=== PATIENT | male | born 1940 | race Caucasian/White ===

== ENCOUNTER 2022-06-01 18:10 | Inpatient (IN) | payer MEDICARE, SELFPAY ==
--- NOTE | 2022-06-01 18:11 | ED_ITS ---
HPI - Weakness General: Chief complaint: Fall Stated complaint: WEAKNESS Time Seen by Provider: 06/01/22 18:11 Limitations: altered mental status History of Present Illness: Mr. Kwan is a 81-year-old gentleman with significant past medical history of dementia, diabetes, heart disease who presents to the emergency department due to multiple falls. He has had 2 unwitnessed falls at home today. In general he has some degree of difficulty getting around primarily with right leg weakness however over the past week is seem to be more weak. Specifically after having unwitnessed fall where he was found got wedged between 2 mattress components earlier today he subsequently had worse left lower extremity pain and was complaining of weakness and back pain. He subsequently had another unwitnessed fall after trying to get up. Currently denies complaints though history is significantly limited by baseline dementia and patient being hard of hearing, history is provided by patient's at bedside. Onset (ago): day(s) Review of Systems General: Reports: ROS unobtainable due to mental status PFS ED PFSH: Medical History CAD (coronary artery disease) Dementia History of diabetes mellitus History of hyperlipidemia Surgical History History of appendectomy History of coronary angioplasty with insertion of stent Hx of CABG Social History Smoking and tobacco status: never smoked Physical Exam Const: COMMON NORMALS: alert GENERAL APPEARANCE: cooperative and well developed HENMT: COMMON NORMALS: normocephalic and atraumatic HEAD & SCALP: normocephalic and atraumatic OTHER: Left temporal skin abnormality reported chronic from history of skin cancer. No west signs or raccoon eyes. No otorrhea or rhinorrhea. Jaw alignment normal. Dentition baseline. No obvious bony step-offs. No septal hematoma. No evidence of ocular entrapment. Eye: COMMON NORMALS: conjunctivae normal CONJUNCTIVA: Yes conjunctivae normal SCLERA: sclerae normal Neck/C-Spine: COMMON NORMALS: supple GENERAL: Yes trachea midline Chest: OTHER: Midline sternotomy incision?remote Resp: COMMON NORMALS: clear to auscultation bilaterally EFFORT & INSPECTION: Yes able to speak in complete sentences AUSCULTATION: clear to auscultation bilaterally Cardio: COMMON NORMALS: regular rate and regular rhythm RATE: regular rate RHYTHM: regular rhythm GI: COMMON NORMALS: Soft to palpation PALPATION: Yes Soft to palpation and No Tenderness to palpation present (GI) Extremity: GENERAL: Yes normal exam except as noted and No edema Neuro: COMMON NORMALS: moves all extremities SENSORIUM/ORIENTATION: Yes alert and Yes Orientation impaired Psych: MEMORY/COGNITION: Yes memory grossly impaired Course ED course: - Patient was seen and evaluated by me at bedside - Patient placed on cardiac monitors, IV access obtained - Initial evaluation notable for exam as above. Neurologic exam appears nonfocal. - Labs personally interpreted by me. EKG with atrial fibrillation with controlled ventricular response, no STEMI. - Labs notable for no leukocytosis, normal hemoglobin. Metabolic panel without acute electrolyte derangement to explain symptoms. Delta troponin negative at 2 hours. Hematuria without evidence of UTI. - Imaging notable for no acute traumatic internal or bony injury. Patient does have kidney stones though appears in renal pelvis, patient does not have symptoms consistent with ureterolithiasis. - Upon serial reexamination after treatment the patient was similar. Repeat EKG similar. - Based on patient history, evaluation, and testing as interpreted the most likely cause of the patient's condition is uncertain, generalized weakness and falls, possibly related to new onset atrial fibrillation - The results of ED evaluation were discussed with the patient and his including possible disposition options, given increased weakness they do wish to pursue further evaluation of patient's potentially new onset atrial fibrillation. I discussed plan for admission due to requirement for level of care not available if discharged to prevent significant worsening/deterioration. - Admitting service was contacted and Dr Corey with the hospitalist service agreed to admit the patient - Patient was admitted without further deterioration or significant events. Note: Click bubbles or prepopulated barker in note writing are used for assistance with data collection and billing and are inherently more limited than narrative and other text portions of this note. Please use narrative for additional clinical history and defer to narrative/free test for any case of contradictory information. If information appears in only free text or click bubble it should be considered present or absent as reported. Please contact note teletypewriter operator for clarifications of clinical information or contradictory information. MDM is a brief summary, contradictory or erroneous seeming information should be clarified and full note should be reviewed. Vital Signs: Vital signs: Vital Signs Temperature 98.1 F 06/05/22 15:11 Pulse Rate 85 06/05/22 15:11 Respiratory Rate 18 06/05/22 15:11 Blood Pressure 159/72 06/05/22 15:11 Pulse Oximetry 95 06/05/22 15:11 Oxygen Delivery Me thod 06/05/22 11:05 MDM - Weakness Medical Decision Making 81-year-old gentleman presenting with increased weakness and multiple falls. History somewhat limited by underlying dementia and very hard of hearing. No acute traumatic injury identified on CT imaging. Labs without clear explanation of symptoms. Patient found to have A. fib which he has no previous knowledge of . Admitted for further management of new onset A. fib which may be contributing to increased falls and weakness. Medical Records I reviewed the patient's medical records. Lab Data I reviewed the patient's lab results. : 06/02/22 05:12 06/05/22 05:28 Radiology Impressions Cervical Spine CT 06/01/22 18:25 IMPRESSION: No acute findings. Chest/Abdomen/Pelvis CT 06/01/22 18:25 IMPRESSION: 1. Negative for traumatic injury to the chest. 2. Cardiomegaly. 3. Coronary artery atherosclerotic calcifications. 4. Bilateral dependent atelectasis. IMPRESSION: 1. Negative for traumatic injury to the abdomen or pelvis. 2. 8.9 mm calculus in the right renal pelvis with some prominence of the renal pelvis. 3. Bilateral nonobstructing renal calyceal stones. 4. Prostate gland enlarged. 5. Severe bilateral osteoarthritis of the hips. 6. Diverticulosis without diverticulitis. 7. Left kidney 8.5 mm hyperdense likely hemorrhagic cyst, likely chronic. Head CT 06/01/22 18:25 IMPRESSION: No acute intracranial abnormality. Laboratory Results WBC 7.8 10^3/uL (4.0-10.0) 06/01/22 19:02 RBC 5.04 10^6/uL (4.1-5.3) 06/01/22 19:02 Hgb 15.5 g/dL (11.7-16.6) 06/01/22 19:02 Hct 47.0 % (42.0-52.0) 06/01/22 19:02 MCV 93.3 fl (80-94) 06/01/22 19:02 MCH 30.8 pg (28.0-34.0) 06/01/22 19: MCHC 33.0 g/dL (30.0-36.0) 06/01/22 19:02 RDW 14.9 % (12.1-15.1) 06/01/22 19:02 Plt Count 187 10^3/cmm (130-400) 06/01/22 19: MPV 10.5 fL (7.4-10.4) H 06/01/22 19:02 Neut % (Auto) 78.3 % 06/01/22 19: Lymph % (Auto) 13.3 % 06/01/22 19: [place] % (Auto) 7.3 % 06/01/22 19: Eos % (Auto) 0.4 % 06/01/22: Baso % (Auto) 0.4 % 06/01/22: Neut # (Auto) 6.13 10^3/uL (1.8-7.7) 06/01/22 19: Lymph # (Auto) 1.0 10^3/uL (0.8-4.8) 06/01/22 19:02 [place] # (Auto) 0.6 10^3/uL (0.2-0.9) 06/01/22 19: Eos # (Auto) 0.0 10^3/uL (0.0-0.8) 06/01/22 19: Baso # (Auto) 0.0 10^3/uL (0.0-0.1) 06/01/22 19: Nucleated RBC % (auto) 0 % 06/01/22 19: Nucleated RBCs # 0.0 /100WBC 06/01/22 19:02 Sodium 139 mmol/L (136-145) 06/01/22 19:02 Potassium 3.8 mmol/L (3.5-5.1) 06/01/22 19:02 Chloride 105 mmol/L (98-107) 06/01/22 19:02 Carbon Dioxide 25 mmol/L (22-29) 06/01/22 19: Anion Gap 12.8 (5-19) 06/01/22 19:02 BUN 30 mg/dL (8-23) H 06/01/22 19:02 Creatinine 1.1 mg/dL (0.7-1.2) 06/01/22 19:02 GFR Calculation Not Reportable 06/01/22 19:02 Glucose 93 mg/dL (65-115) 06/01/22 19:02 Calculated Osmolality 294 mOsm/kg (285-295) 06/01/22 19:02 Calcium 9.7 mg/dL (8.5-10.5) 06/01/22 19:02 Magnesium 1.9 mg/dL (1.7-2.3) 06/01/22 19:05 Total Bilirubin 1.0 mg/dL (0.15-1.2) 06/01/22 19:02 AST 17 U/L (0-40) 06/01/22 19:02 ALT 15 U/L (0-41) 06/01/22 19:02 Alkaline Phosphatase 87 U/L (40-130) 06/01/22 19:02 Creatine Kinase 107 U/L (39-308) 06/01/22 19:02 Troponin T Baseline 39 ng/L (0-15) H 06/01/22 19:02 Troponin T 120 Minute 40.77 ng/L (0-15) H 06/01/22 20:40 Delta Troponin T 1.77 ABS# (0-10) 06/01/22 20:40 Total Protein 6.3 g/dL (6.6-8.7) L 06/01/22 19:02 Albumin 3.4 g/dL (3.5-5.2) L 06/01/22 19:02 Globulin 2.9 g/dL (1.3-4.6) 06/01/22 19:02 TSH 1.73 uIU/mL (0.27-4.20) 06/01/22 19:02 Urine Color Yellow (Yellow) 06/01/22:54 Urine Appearance Clear (CLEAR) 06/01/22 19:54 Urine pH 6 (5-7) 06/01/22 19:54 Ur Specific [place] 1.020 (1.005-1.030) 06/01/22 19:54 Urine Protein 1+ (Negative) H 06/01/22 19:54 Urine Glucose (UA) Norm (Normal) 06/01/22 19:54 Urine Ketones 1+ (Negative) H 06/01/22 19:54 Urine Blood 3+ (Negative) H 06/01/22 19:54 Urine Nitrate Negative (Negative) 06/01/22 19:54 Urine Bilirubin Neg (Negative) 06/01/22 19:54 Urine Urobilinogen 1 mg/dL (Negative) H 06/01/22 19:54 Ur Leukocyte Esterase Negative (Negative) 06/01/22 19:54 Urine RBC 10-15 /hpf (0-2) H 06/01/22 19:54 Urine WBC 0-4 /hpf (0-5) H 06/01/22 19:54 Ur Squamous Epith Cells 0-4 /hpf (0-5) H 06/01/22 19:54 Amorphous Sediment Not Reportable 06/01/22 19:54 Urine Bacteria None /hpf (NONE) 06/01/22 19:54 Hyaline Casts 0-4 /lpf H 06/01/22 19:54 Discharge Plan Discharge Patient Disposition: Placed in Observation Admit Provider: Willie Corey Clinical Impression: Atrial fibrillation, new onset, Falls, Generalized weakness, Nephrolithiasis, Hematuria Coding Level of Care Code ED Channel Marketing Specialist for Chg Fwd Exam Comprehensive
[2022-06-01 18:12] VITALS: BP 150/90; RESP 16; TEMP 37; O2SAT 95; BMI 23.7
--- NOTE | 2022-06-01 18:25 | CTR_ITS ---
PROCEDURE INFORMATION: Exam: CT Cervical Spine Without Contrast Exam date and time: 06/01/2022 6:43 PM Age: 81 years old Clinical indication: Injury or trauma; Blunt trauma; Injury details: Multiple falls over the last 2 weeks. Fell twice today. AMS, weakness. PT C/O head, neck, and back pain; Prior surgery; Additional info: Fall, AMS TECHNIQUE: Imaging protocol: Computed tomography of the cervical spine without contrast. Radiation optimization: All CT scans at this facility use at least one of these dose optimization techniques: automated exposure control; mA and/or kV adjustment per patient size (includes targeted exams where dose is matched to clinical indication); or iterative reconstruction. COMPARISON: CT cervical spin wo con* [id number] 08/30/2017 4:49 AM RADIATION DOSE METRICS: Total DLP (mGy-cm): 206.7 FINDINGS: Bones/joints: No acute fracture. Normal alignment. C2-C3: No significant disc protrusion. No severe spinal canal stenosis. No significant neural foraminal narrowing. C3-C4: No significant disc protrusion. No severe spinal canal stenosis. No significant neural foraminal narrowing. C4-C5: No significant disc protrusion. No severe spinal canal stenosis. No significant neural foraminal narrowing. C5-C6: No significant disc protrusion. No severe spinal canal stenosis. No significant neural foraminal narrowing. C6-C7: No significant disc protrusion. No severe spinal canal stenosis. No significant neural foraminal narrowing. C7-T1: No significant disc protrusion. No severe spinal canal stenosis. No significant neural foraminal narrowing. Lungs: Lung apices are normal. Soft tissues: Unremarkable. CT/CT cervical spin wo con* [id number] IMPRESSION: No acute findings.
--- NOTE | 2022-06-01 18:25 | CTR_ITS ---
PROCEDURE INFORMATION: Exam: CT Head Without Contrast Exam date and time: 06/01/2022 6:43 PM Age: 81 years old Clinical indication: Injury or trauma; Fall; Blunt trauma (contusions or hematomas); Additional info: Fall, AMS, increased le weakness TECHNIQUE: Imaging protocol: Computed tomography of the head without contrast. Radiation optimization: All CT scans at this facility use at least one of these dose optimization techniques: automated exposure control; mA and/or kV adjustment per patient size (includes targeted exams where dose is matched to clinical indication); or iterative reconstruction. COMPARISON: CT head wo con* [id number] 08/30/2017 4:45 AM RADIATION DOSE METRICS: Total DLP (mGy-cm): 1010.29 FINDINGS: Brain: No hemorrhage. No edema. Advanced diffuse cerebral atrophy. 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 Old punctate lacunar infarcts noted in the left basal ganglia. No mass effect. Cerebral ventricles: No ventriculomegaly. Paranasal sinuses: Visualized sinuses are unremarkable. No fluid levels. Mastoid air cells: Visualized mastoid air cells are well aerated. Bones/joints: Unremarkable. No acute fracture. Soft tissues: Unremarkable. CT/CT head wo con* [id number] IMPRESSION: No acute intracranial abnormality.
--- NOTE | 2022-06-01 18:25 | CTR_ITS ---
PROCEDURE INFORMATION: Exam: CT Chest Without Contrast; Diagnostic Exam date and time: 06/01/2022 6:43 PM Age: 81 years old Clinical indication: Injury or trauma; Generalized; Blunt trauma (contusions or hematomas); Injury details: Multiple falls over the last 2 weeks. Fell twice today. AMS, weakness. PT C/O head, neck, and back pain; Additional info: Fall, back pain, AMS TECHNIQUE: Imaging protocol: Diagnostic computed tomography of the chest without contrast. Radiation optimization: All CT scans at this facility use at least one of these dose optimization techniques: automated exposure control; mA and/or kV adjustment per patient size (includes targeted exams where dose is matched to clinical indication); or iterative reconstruction. COMPARISON: CT angio chest PE protcl [id number] 08/30/2017 12:35 PM RADIATION DOSE METRICS: Total DLP (mGy-cm): 877 FINDINGS: Lungs: Bilateral dependent atelectasis. Pleural spaces: Unremarkable. No pneumothorax. No pleural effusion. Heart: Cardiomegaly. Coronary artery atherosclerotic calcifications. Lymph nodes: Unremarkable. No enlarged lymph nodes. Vasculature: Unremarkable. No aortic aneurysm. Bones/joints: Sternotomy wires. Soft tissues: Unremarkable. PROCEDURE INFORMATION: Exam: CT Abdomen And Pelvis Without Contrast Exam date and time: 06/01/2022 6:43 PM Age: 81 years old Clinical indication: Injury or trauma; Generalized; Blunt trauma (contusions or hematomas); Injury details: Multiple falls over the last 2 weeks. Fell twice today. AMS, weakness. PT C/O head, neck, and back pain; Additional info: Fall, back pain, AMS TECHNIQUE: Imaging protocol: Computed tomography of the abdomen and pelvis without contrast. Radiation optimization: All CT scans at this facility use at least one of these dose optimization techniques: automated exposure control; mA and/or kV adjustment per patient size (includes targeted exams where dose is matched to clinical indication); or iterative reconstruction. COMPARISON: CT angio chest PE protcl [id number] 08/30/2017 12:35 PM RADIATION DOSE METRICS: Total DLP (mGy-cm): 877 FINDINGS: Liver: Normal. No mass. Gallbladder and bile ducts: Normal. No calcified stones. No ductal dilation. Pancreas: Normal. No ductal dilation. Spleen: Normal. No splenomegaly. Adrenal glands: Normal. No mass. Kidneys and ureters: 8.9 mm calculus in the right renal pelvis with some prominence of the renal pelvis. Bilateral nonobstructing renal calyceal stones. Stomach and bowel: Diverticulosis without diverticulitis. Left kidney 8.5 mm hyperdense likely hemorrhagic cyst, likely chronic. Appendix: No evidence of appendicitis. Intraperitoneal space: Unremarkable. No free air. No significant fluid collection. Vasculature: Unremarkable. No abdominal aortic aneurysm. Lymph nodes: Unremarkable. No enlarged lymph nodes. Urinary bladder: Unremarkable as visualized. Reproductive: Prostate gland enlarged. Bones/joints: Severe bilateral osteoarthritis of the hips. Soft tissues: Unremarkable. CT/[place] [id number] IMPRESSION: 1. Negative for traumatic injury to the chest. 2. Cardiomegaly. 3. Coronary artery atherosclerotic calcifications. 4. Bilateral dependent atelectasis. IMPRESSION: 1. Negative for traumatic injury to the abdomen or pelvis. 2. 8.9 mm calculus in the right renal pelvis with some prominence of the renal pelvis. 3. Bilateral nonobstructing renal calyceal stones. 4. Prostate gland enlarged. 5. Severe bilateral osteoarthritis of the hips. 6. Diverticulosis without diverticulitis. 7. Left kidney 8.5 mm hyperdense likely hemorrhagic cyst, likely chronic.
[2022-06-01 18:31] VITALS: BP 145/93; PULSE 81; RESP 20; O2SAT 94
--- NOTE | 2022-06-01 19:00 | ECG_ITS ---
[facility] Test Date: 2022-06-01 Pat Name: Natividad Kwan Department: Room: Gender: Male Quality Facilitator: : 1940 Requested By: Sonido Ledbetter Order Number: [id number] Dhaval MD: Kasey Feldman M.D. Measurements Intervals [place] Rate: 78 P: CT: QRS: -43 QRSD: 109 T: 160 QT: 371 QTc: 423 Interpretive Statements ATRIAL FIBRILLATION LEFT AXIS DEVIATION [QRS AXIS < -30] MINIMAL VOLTAGE CRITERIA FOR LVH, CONSIDER NORMAL VARIANT [MEETS CRITERIA IN ONE OF: R(aVL), S(V1), R(V5), R(V5/V6)+S(V1)] ST DEVIATION AND MODERATE T-WAVE ABNORMALITY, CONSIDER LATERAL ISCHEMIA [-0.1+ mV T-WAVE IN I/aVL/V5/V6] Compared to ECG 08/31/2017 05:04:15 Left-axis deviation now present Sinus rhythm no longer present T-wave abnormality still present Possible ischemia still present Electronically Signed On 06-02-2022 8:34:15 CDT by Kasey Feldman M.D. [id number]
[2022-06-01 19:08] LABS: Basophils % 0.4 %; Eosinophils % 0.4 %; Hemoglobin 15.5 g/dL (11.7-16.6); Lymphocytes % 13.3 %; Mean Corpuscular Hemoglobin 30.8 pg (28.0-34.0); Mean Corpuscular Volume 93.3 fl (80-94); Mean Platelet Volume 10.5 fL (7.4-10.4); Monocytes # 0.6 10^3/uL (0.2-0.9); Monocytes % 7.3 %; Neutrophils # 6.13 10^3/uL (1.8-7.7); Neutrophils % 78.3 %; Nucleated Red Blood Cells % 0 %; Platelet Count 187 10^3/cmm (130-400); Red Blood Count 5.04 10^6/uL (4.1-5.3); Red Cell Distribution Width 14.9 % (12.1-15.1); White Blood Count 7.8 10^3/uL (4.0-10.0)
[2022-06-01 19:57] LABS: Alanine Aminotransferase 15 U/L (0-41); Albumin Level 3.4 g/dL (3.5-5.2); Alkaline Phosphatase 87 U/L (40-130); Anion Gap 12.8 (5-19); Aspartate Amino Transferase 17 U/L (0-40); Blood Urea Nitrogen 30 mg/dL (8-23); Calcium 9.7 mg/dL (8.5-10.5); Carbon Dioxide 25 mmol/L (22-29); Chloride 105 mmol/L (98-107); Creatine Phosphokinase 107 U/L (39-308); Globulin 2.9 g/dL (1.3-4.6); Glucose 93 mg/dL (65-115); Osmolality Calculated 294 mOsm/kg (285-295); Potassium 3.8 mmol/L (3.5-5.1); Sodium 139 mmol/L (136-145); Thyroid Stimulating Hormone 1.73 uIU/mL (0.27-4.20); Total Protein 6.3 g/dL (6.6-8.7)
[2022-06-01 20:01] LABS: Troponin(5th) Baseline 39 ng/L (0-15)
[2022-06-01 20:17] LABS: Add Urine Microscopic? YES; Bilirubin Urine Neg (Negative); Blood Urine 3+ (Negative); Glucose Urine UA Norm (Normal); Hyaline Casts Urine 0-4 /lpf; Ketones Urine 1+ (Negative); Leukocyte Esterase Urine Negative (Negative); Nitrate Urine Negative (Negative); Protein Urine 1+ (Negative); Squamous Epithelial Cell Urine 0-4 /hpf (0-5); Urine Appearance Clear (CLEAR); Urine Color Yellow (Yellow); Urobilinogen Urine 1 mg/dL (Negative); WBC Urine 0-4 /hpf (0-5); pH Urine 6 (5-7)
[2022-06-01 20:18] LABS: Add Urine Culture? No
--- NOTE | 2022-06-01 20:37 | ECG_ITS ---
[facility] Test Date: 2022-06-01 Pat Name: Natividad Kwan Department: Room: Gender: Male Service Car Operator: : 1940 Requested By: Sonido Ledbetter Order Number: [id number] Dhaval MD: Kasey Feldman M.D. Measurements Intervals [place] Rate: 73 P: TN: QRS: -33 QRSD: 109 T: 149 QT: 399 QTc: 441 Interpretive Statements ATRIAL FIBRILLATION LEFT AXIS DEVIATION [QRS AXIS < -30] VOLTAGE CRITERIA FOR LVH [MEETS CRITERIA IN ONE OF: R(aVL), S(V1), R(V5), R(V5/V6)+S(V1)] ST DEVIATION AND MODERATE T-WAVE ABNORMALITY, CONSIDER LATERAL ISCHEMIA [-0.1+ mV T-WAVE IN I/aVL/V5/V6] Compared to ECG 06/01/2022 19:00:40 No significant changes Electronically Signed On 06-02-2022 8:37:51 CDT by Kasey Feldman M.D. [id number]
[2022-06-01 21:02] LABS: Magnesium 1.9 mg/dL (1.7-2.3)
[2022-06-01 21:15] LABS: Troponin 5 2HR 40.77 ng/L (0-15)
[2022-06-01 21:18] LABS: Troponin 5 2HR Delta 1.77 ABS# (0-10)
[2022-06-01 22:46] VITALS: BP 139/76; PULSE 80; RESP 16; TEMP 37; O2SAT 95
--- NOTE | 2022-06-01 22:52 | PM.HP ---
Providers/Chief Complaint Admitting Physician: Willie Corey MD Primary Care Provider: Teja Duggan Chief Complaint: WEAKNESS History of Present Illness Natividad Kwan is a 81 year old male with a past medical history of CAD, history of CABG, history of hypertension, history of Alzheimer's dementia, who presents to [facility] due to falls. Patient's currently alert to person, not to place, not to time, most of the history was provided by at bedside. Patient's tells me that he is fairly forgetful, his dementia has advanced, he does not really carry out conversations, and recently he has been forgetting, numerous such as his son. She tells he that his mobility has drastically declined, he is now more wheeled walker bound, he is ambulatory status is dramatically declined, she tells me that now he has had significant falls. He has had a fall every single day for the last 3 weeks. She was told by her son, as she goes to work that every day that she is going to work he is had a significant fall. The etiology of the falls are uncertain, they think that is a mechanical fall. But today when she went to work, she was told by her son that he had fallen, she came up and checked up on him, she tells her that when she was at home she fell asleep, when she woke up, she found him on the floor she is not sure how long he was on the floor for. She tells me that these falls are not typical for him and they will start in the last 3 weeks. She wonders if he had a stroke, as he tends to lean more to the right, this is very unusual for him, he is very unsteady on his feet. No history of UTIs, no history of cough, no history of COVID infection. No chest pain complaints, no shortness of breath complaints. No lower extreme edema. Patient's tells me that he has had significant weakness in bilateral lower extremities recently in the last few days, worsening today as he is barely able to stand up and walk Review of Systems General: Reports: ROS unobtainable due to mental status Const: Denies: fever(s) Medications/Allergies Home Medications Medication Instructions Recorded Confirmed Last Taken Type Bystolic 5 mg 06/01/22 06/01/22 History allopurinol 300 mg tablet mg 06/01/22 06/01/22 04:45 History aspirin 300 tab 06/01/22 06/01/22 History citalopram 10 mg tablet mg 06/01/22 06/01/22 History finasteride 5 mg tablet mg 06/01/22 06/01/22 04:45 History hydrochlorothiazide 25 mg tablet mg 06/01/22 06/01/22 History lisinopril 10 mg tablet mg 06/01/22 06/01/22 History meloxicam 15 mg tablet mg 06/01/22 06/01/22 History memantine ER 28 mg-donepezil 10 mg PO 06/01/22 06/01/22 History capsule sprinkle,ext.release 24 hr (Namzaric) mirabegron 50 mg tablet,extended mg PO 06/01/22 06/01/22 History release 24 hr (Myrbetriq) rosuvastatin 10 mg tablet mg 06/01/22 06/01/22 History tamsulosin 0.4 mg capsule mg PO 06/01/22 06/01/22 History Allergies Allergy/AdvReac Type Severity Reaction Status Date / Time No Known Allergies Allergy Verified 06/01/22 18:17 PFSH Acute PFSH: Medical History CAD (coronary artery disease) Dementia History of diabetes mellitus History of hyperlipidemia Surgical History History of appendectomy History of coronary angioplasty with insertion of stent Hx of CABG Social History Smoking and tobacco status: never smoked Vitals/I&O/Wt Last Vital Signs Temp 98.6 F 06/01/22 22:46 Pulse 80 06/01/22 22:46 Resp 16 06/01/22 22:46 BP 139/76 06/01/22 22:46 Pulse Ox 95 06/01/22 22:46 O2 Del Method 06/01/22 22:46 Weight last 48 hrs Weight 77.111 kg Physical Exam Const: COMMON NORMALS: no acute distress EXAM LIMITATIONS: altered mental status HENMT: COMMON NORMALS: normocephalic HEAD & SCALP: normocephalic Eye: COMMON NORMALS: Equal, round and reactive pupils present and EOMs intact bilaterally Resp: COMMON NORMALS: normal respiratory effort, No retractions, No use of accessory muscles and clear to auscultation bilaterally AUSCULTATION: clear to auscultation bilaterally Cardio: COMMON NORMALS: no JVD, regular rate, regular rhythm, S1 normal heart sound present and S2 normal heart sound present RATE: regular rate RHYTHM: regular rhythm HEART SOUNDS: S1 normal heart sound present and S2 normal heart sound present GI: COMMON NORMALS: Normal to inspection, nondistended, normoactive bowel sounds present, Soft to palpation, non-tender, No hepatosplenomegaly present, no masses and no bruits PALPATION: Yes Soft to palpation and Yes No hepatosplenomegaly present Extremity: COMMON NORMALS: no pedal edema Neuro: OTHER: Alert to person, not to place, not to time, neurologic testing is quite difficult given his advanced dementia, he does spontaneously move his bilateral lower extremities, bilateral upper extremities, no facial droop, able to smile for me, strength difficult to assess as he does not follow commands Data : 06/01/22 19:02 06/01/22 19:02 A&P Assessment and plan (1) Atrial fibrillation, new onset: Status: Acute (2) Falls: Status: Acute (3) Generalized weakness: Status: Acute (4) CAD (coronary artery disease): Status: Acute (5) Dementia: Status: Acute (6) CVA (cerebral vascular accident): Status: Acute Plan New onset atrial fibrillation -Patient's denies a prior history of atrial fibrillation, is not on any blood thinners -For now I will put him on Coreg 3.125 twice daily -We will need to monitor hemodynamics closely, if his blood pressures drop, or he has significant bradycardia will need to stop as he already has had increased risk of falls -I discussed anticoagulation in detail with at bedside, risks and benefits discussed, benefits include decreasing the risk of stroke, his Nikolas Vascor is greater than 2, however he has had a fall every single day for the last 3 weeks, he is a high risk of fall, high risk of morbidity and mortality associated with falls on blood thinners, and adverse side effects associate with blood thinners -After discussing the risks and benefits of anticoagulation, she voiced understanding, all questions answered, declined anticoagulation for now -He is on aspirin 325 mg once daily, given his significant falls, I will decrease his dose to 81 mg once daily -Cardiac echo Acute CVA -Brain: No hemorrhage. No edema. Advanced diffuse cerebral atrophy. 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 Old punctate lacunar infarcts noted in the left basal ganglia. No mass effect. Cerebral ventricles: No ventriculomegaly. Paranasal sinuses: Visualized sinuses are unremarkable. No fluid levels. Mastoid air cells: Visualized mastoid air cells are well aerated. -An NIH stroke scale is difficult to assess -However with his new onset recurrent falls, his preference to lean to the right, and with his new onset atrial fibrillation on anticoagulation highly suspicious for acute CVA, likely posterior circulation, likely cerebellar -Thus I will treat him like an acute CVA -Aspirin, statin -Neurochecks, aspiration precautions, speech therapy eval, PT OT -We will likely require correction placement Hypertension, Coreg History of type 2 diabetes mellitus, A1c, low-dose sliding scale Alzheimer's dementia, worsening Falls, deconditioning, PT OT, nursing placement DNR/DNI Lovenox for DVT prophylaxis, SCDs Attestations Medical Necessity Statement*: Patient requires hospitalization, inpatient, greater than 2 midnights, for CVA, new onset atrial fibrillation, recurrent falls Coding Level of Care Code Acute Certified Hyperbaric Technologist for Scott Levy Diagnoses Atrial fibrillation, new onset I48.91 Falls W19.XXXA Generalized weakness R53.1 CAD (coronary artery disease) I25.10 Dementia F03.90 CVA (cerebral vascular accident) I63.9
[2022-06-01 23:13] VITALS: BP 139/76; PULSE 80; RESP 16; TEMP 37; O2SAT 95
[2022-06-01 23:18] VITALS: PULSE 69
--- NOTE | 2022-06-01 23:18 | USCV_ITS ---
Natividad Kwan Age: 81 Gender: M : 1940 Exam Date: 06/01/2022 23:34 Ordering Phys: Willie Corey MD Technologist: Sherrell Chambers Exam Location: [facility] – [place] Indication: New onset of AFIB BP: 138 / 76 HR: 65 Rhythm: Atrial fibrillation Technical Quality: Poor MEASUREMENTS (Male / Female) Normal Values 2D ECHO LV Diastolic Diameter PLAX 3.6 cm 4.2 - 5.9 / 3.9 - 5.3 cm LV Systolic Diameter PLAX 3.0 cm LV Chamber Size 4.1 cm IVS Diastolic Thickness 1.4 cm 0.6 - 1.0 / 0.6 - 0.9 cm IVS Systolic Thickness 2.0 cm LVPW Diastolic Thickness 1.5 cm 0.6 - 1.0 / 0.6 - 0.9 cm LVPW Systolic Thickness 1.6 cm RV Chamber Size 2.9 cm LVOT Diameter 2.1 cm LV Ejection Fraction 2D Teich 37.5 % LV Ejection Fraction MOD 2C 14.8 % LV Ejection Fraction 2C AL 15.6 % LA Diameter 5.6 cm LA Width 4.2 cm LA Height 5.2 cm RA Width 4.3 cm RA Height 4.8 cm Aorta at Sinotubular Diameter 2.9 cm M-MODE Aortic Annulus Diameter 3.5 cm LA Ao Ratio MM 1.7 MV E Point Septal Separation 0.5 cm DOPPLER AV Peak Velocity 266.3 cm/s LVOT Peak Velocity 66.7 cm/s AV Area Cont Eq vti 0.9 cm squared AV Area Cont Eq pk 0.9 cm squared MV Area PHT 4.4 cm squared MV E' Velocity 44.0 cm/s Mitral E to MV E' Ratio 12.6 Mitral E to LV E' Lateral Ratio 13.2 Mitral E to LV E' Septal Ratio 12.3 TR Peak Velocity 189.6 cm/s TR Peak Gradient 14.4 mmHg TR Mean Velocity 145.3 cm/s TR Mean Gradient 9.3 mmHg TR Velocity Time Integral 54.5 cm TV Peak E Velocity 64.0 cm/s Right Atrial Pressure 3.0 mmHg Pulmonary Artery Systolic Pressu 17.4 mmHg RV Acceleration Time 0.1 s RV Ejection Time 0.3 s RV AcT/ET 0.2 FINDINGS Left Ventricle Limited views available. Only the parasternal views are available. 1 cannot determine the overall ejection fraction or wall motion abnormalities. Generally, the function of the left ventricle appears to be diminished somewhat. Diastolic function cannot be determined. Right Ventricle Normal right ventricular size and systolic function. Right Atrium The right atrium is normal in size. Left Atrium Mildly increased left atrial size. Mitral Valve Mitral valve not well visualized. Aortic Valve The valve is not well seen. There is fairly heavy calcification of the aortic valve. Visually the valve appears to be moderately stenosed. There is no obvious aortic insufficiency. The gradient across the valve is about 14.5 mmHg. This would suggest mild aortic stenosis. Tricuspid Valve Tricuspid valve not well visualized. Pulmonic Valve Pulmonic valve not well visualized. Mild pulmonary valve regurgitation. Pericardium Normal pericardium without effusion. Aorta Aorta not well visualized. IVC Inferior vena cava not visualized. CONCLUSIONS Limited views available. Only the parasternal views are available. 1 cannot determine the overall ejection fraction or wall motion abnormalities. Generally, the function of the left ventricle appears to be diminished somewhat. Diastolic function cannot be determined. Mildly increased left atrial size. The valve is not well seen. There is fairly heavy calcification of the aortic valve. Visually the valve appears to be moderately stenosed. There is no obvious aortic insufficiency. The gradient across the valve is about 14.5 mmHg. This would suggest mild aortic stenosis. Previous echo was done in August 2017. The technical comparison is nearly impossible. Previously the left ventricular ejection fraction was normal. The aortic valve was not commented upon in 2017. Dr. Ron Suh MD (Electronically Signed) Final Date: 02 June 2022 08:58 S
[2022-06-02] VITALS (9 sets, daily range): BP systolic 140–174; BP diastolic 79–110; PULSE 50–87; RESP 17–24; TEMP 36.5–37.2; O2SAT 93–98
[2022-06-02] MEDS: sodium chloride 0.9% 1,000 ML 75 ML IV ×2 (00:02→15:51)
[2022-06-02] MEDS: enoxaparin 40 mg/0.4 mL Syringe SUBCUT (00:04)
[2022-06-02] MEDS: carvedilol 3.125 mg Tablet PO ×2 (00:05→08:41)
[2022-06-02] MEDS: aspirin 81 mg EC Tablet PO ×2 (00:05→08:41)
[2022-06-02] MEDS: atorvastatin 40 mg Tablet PO ×2 (00:05→21:22)
[2022-06-02 00:31] LABS: Troponin 5 6HR 45.21 ng/L (0-15)
[2022-06-02 00:39] LABS: Anion Gap 13.4 (5-19); Blood Urea Nitrogen 28 mg/dL (8-23); Calcium 9.6 mg/dL (8.5-10.5); Carbon Dioxide 27 mmol/L (22-29); Chloride 106 mmol/L (98-107); Cholesterol 122 mg/dL (0-200); Glucose 88 mg/dL (65-115); HDL Cholesterol 37 mg/dL (60-100); LDL Cholesterol Calculated 69 mg/dL (50-129); LDL HDL Ratio 1.86 RATIO (0.00-3.22); Osmolality Calculated 301 mOsm/kg (285-295); Potassium 3.4 mmol/L (3.5-5.1); Sodium 143 mmol/L (136-145); Thyroid Stimulating Hormone 1.71 uIU/mL (0.27-4.20); Triglycerides 78 mg/dL (0-150); Troponin 5 6HR Delta 6.21 ng/L (0-12)
--- NOTE | 2022-06-02 00:45 | ECG_ITS ---
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 Measurements Intervals [place] Rate: 68 P: [place]: QRS: -41 QRSD: 121 T: 150 QT: 427 QTc: 456 Interpretive Statements ATRIAL FIBRILLATION WITH ABERRANT CONDUCTION OR VENTRICULAR PREMATURE COMPLEXES LEFT AXIS DEVIATION [QRS AXIS < -30] MODERATE INTRAVENTRICULAR CONDUCTION DELAY [105+ ms QRS DURATION, 80+ ms Q/S IN V1/V2, NO Q AND 60+ ms R IN I/aVL/V5/V6] MODERATE VOLTAGE CRITERIA FOR LVH, CONSIDER NORMAL VARIANT [MEETS CRITERIA IN ONE OF: R(aVL), S(V1), R(V5), R(V5/V6)+S(V1)] ST DEVIATION AND MODERATE T-WAVE ABNORMALITY, CONSIDER LATERAL ISCHEMIA [-0.1+ mV T-WAVE IN I/aVL/V5/V6] Compared to ECG 06/01/2022 20:37:01 Ventricular premature complex(es) now present Aberrant conduction of supraventricular beat(s) now present Intraventricular conduction delay now present T-wave abnormality still present Possible ischemia still present Electronically Signed On 06-02-2022 9:44:18 CDT by Ron Suh M.D. [email or web address]
[2022-06-02 01:16] LABS: Estmated Average Glucose 103; Hemoglobin A1C 5.2 % (4.0-6.0)
--- NOTE | 2022-06-02 01:36 | PC.NURSE ---
Notified of patient being calm and cooperative, appears to be resting comfortably at this time. No sitters available asking if patient can just have a bedalarm and side railsx3. said ok if no sitter at this time as long as bed alarm is on and patient is mnonitored closely as he has been falling out of bed at home.
[2022-06-02 05:50] LABS: Basophils # 0.1 10^3/uL (0.0-0.1); Basophils % 0.6 %; Eosinophils # 0.3 10^3/uL (0.0-0.8); Eosinophils % 3.6 %; Hematocrit 44.8 % (42.0-52.0); Hemoglobin 14.7 g/dL (11.7-16.6); Lymphocytes # 1.8 10^3/uL (0.8-4.8); Lymphocytes % 22.3 %; Mean Corpuscular HGB Conc 32.8 g/dL (30.0-36.0); Mean Corpuscular Hemoglobin 30.7 pg (28.0-34.0); Mean Corpuscular Volume 93.5 fl (80-94); Monocytes # 0.7 10^3/uL (0.2-0.9); Monocytes % 8.4 %; Neutrophils # 5.07 10^3/uL (1.8-7.7); Neutrophils % 64.8 %; Nucleated Red Blood Cells % 0 %; Platelet Count 175 10^3/cmm (130-400); Red Blood Count 4.79 10^6/uL (4.1-5.3); Red Cell Distribution Width 14.7 % (12.1-15.1); White Blood Count 7.8 10^3/uL (4.0-10.0)
[2022-06-02 06:27] LABS: Glucose Point of Care 91 mg/dL (70-110)
[2022-06-02] MEDS: tamsulosin 0.4 mg Capsule PO (08:41)
[2022-06-02] MEDS: pantoprazole DR 40 mg Tablet PO (08:41)
--- NOTE | 2022-06-02 17:55 | P.PN_ITS ---
Subjective Subjective: He is sitting up, having breakfast. He is very hard of hearing. Being visited by his son. He thinks he is in long term. He denies any pain or discomfort. Denies any noticeable numbness or weakness that he can tell. Vitals/I&O/Wt Last Vital Signs Temp 98.2 F 06/02/22 16:00 Pulse 77 06/02/22 16:00 Resp 20 H 06/02/22 12:00 BP 148/79 06/02/22 16:00 Pulse Ox 98 06/02/22 16:00 O2 Del Method 06/02/22 12:00 06/02/22 06/02/22 06/02/22 06:59 14:59 22:59 Intake Total 80 / 80 1000 / 1000 Balance 80 / 80 1000 / 1000 Weight last 48 hrs Weight 77.111 kg Physical Exam Narrative: Son at bedside Const: COMMON NORMALS: alert; negative for patient oriented x3 GENERAL APPEARANCE: cooperative ORIENTATION/CONSCIOUSNESS: Yes awake OTHER: Very [place] HENMT: COMMON NORMALS: oropharynx normal Neck/C-Spine: COMMON NORMALS: no JVD Resp: COMMON NORMALS: normal respiratory effort and clear to auscultation bilaterally AUSCULTATION: clear to auscultation bilaterally Cardio: COMMON NORMALS: no JVD, regular rhythm, S1 normal heart sound present, S2 normal heart sound present and No murmurs present (Cardio) RHYTHM: regular rhythm HEART SOUNDS: S1 normal heart sound present and S2 normal heart sound present GI: COMMON NORMALS: Normal to inspection, nondistended, normoactive bowel sounds present, Soft to palpation and non-tender PALPATION: Yes Soft to palpation Extremity: COMMON NORMALS: no joint enlargement and no pedal edema Neuro: COMMON NORMALS: moves all extremities; negative for patient oriented x3 SENSORIUM/ORIENTATION: Yes alert OTHER: He is awake, alert, very hard of hearing, and has difficulty following directions requiring repetition or restating directions several times. Follows commands with difficulty and not every time. Cannot comprehend to resolved with track with his eyes. Visual barker appear to be intact to confrontation. Reports sensation is symmetrical. Does not appear to extinguish. Minimal right upper, mild right lower weakness, minimal drift. Minimal dysmetria continue tremor on FNF. Skin: COMMON NORMALS: no rashes or lesions noted GENERAL SKIN EXAM: no rashes or lesions noted Data : 06/02/22 05:12 06/01/22 23:58 A&P Assessment and plan (1) CVA (cerebral vascular accident): Concern for additional possible acute on chronic CVA. Multiple prior CVA noted. Discussed with son. With atrial fibrillation and fortunately at risk of recurrent CVA, however, due to recurrent falls, dementia, and very high risk of falling, bleeding. Not started on anticoagulation as per discussion with his family as appreciated in admission documentation. TTE with limited views. Noted possibly mild to moderate moderate aortic stenosis. Unknown ejection fraction. RV normal size, LA mildly increased in size. Continue aspirin, statin. Assessment with therapy, unfortunately question with dementia whether he may benefit from rehabilitation. If found to be able to benefit, consideration of SNF after discharge. If not able to benefit, may be a candidate for hospice care. Would discontinue meloxicam. Status: Acute (2) Atrial fibrillation, new onset: TTE with limited views. Noted possibly mild to moderate moderate aortic stenosis. Unknown ejection fraction. RV normal size, LA mildly increased in si ze. Found not a candidate for anticoagulation. Carvedilol held due to concern for possible acute CVA. Also heart rate noted down to 50 bpm. Monitor. TSH WNL.Magnesium okay. Replace potassium. Recheck. Status: Acute (3) Falls: Assessment as above. Fall precautions. Not a candidate for anticoagulation. Status: Acute (4) Generalized weakness: Status: Acute (5) CAD (coronary artery disease): Status: Acute (6) Dementia: Status: Acute (7) Microscopic hematuria: Consider reassessment UA after discharge depending on goals of care. Status: Acute Plan Hypertension, held Coreg History of type 2 diabetes mellitus, A1c, low-dose sliding scale Alzheimer's dementia, worsening DNR/DNI Lovenox for DVT prophylaxis, SCDs Attestations Medical Necessity Statement*: Continue hospitalization for abscess management after acute on chronic CVA, new A. fib, frequent falls, post discharge planning and goals of care discussion. Coding Level of Care Code Acute Manager Business Management for [employer] Diagnoses CVA (cerebral vascular accident) I63.9 Atrial fibrillation, new onset I48.91 Falls W19.XXXA Generalized weakness R53.1 CAD (coronary artery disease) I25.10 Dementia F03.90 Microscopic hematuria R31.29
[2022-06-02 18:07] LABS: Glucose Point of Care 189 mg/dL (70-110)
--- NOTE | 2022-06-02 18:29 | PC.NURSE ---
Patient inadvertently pulls out IV when trying to get out of bed to use the restroom. Head Of Visual Merchandising asked Dr. Cisneros if we could dc pt's fluids and Blayne Ok'd. Discontinued IV at 1831.
[2022-06-02] MEDS: potassium chloride ER 20 mEq Tablet 40 MEQ PO (18:42)
[2022-06-02 21:28] LABS: Glucose Point of Care 105 mg/dL (70-110)
[2022-06-03] VITALS (9 sets, daily range): BP systolic 128–188; BP diastolic 60–99; PULSE 65–82; RESP 18–20; TEMP 36.3–36.9; O2SAT 94–97
[2022-06-03] MEDS: enoxaparin 40 mg/0.4 mL Syringe SUBCUT ×2 (00:20→19:26)
[2022-06-03 04:30] LABS: Anion Gap 10.8 (5-19); Blood Urea Nitrogen 27 mg/dL (8-23); Carbon Dioxide 27 mmol/L (22-29); Chloride 109 mmol/L (98-107); Glucose 87 mg/dL (65-115); Osmolality Calculated 300 mOsm/kg (285-295); Potassium 3.8 mmol/L (3.5-5.1); Sodium 143 mmol/L (136-145)
[2022-06-03 06:13] LABS: Glucose Point of Care 79 mg/dL (70-110)
[2022-06-03] MEDS: tamsulosin 0.4 mg Capsule PO (08:24)
[2022-06-03] MEDS: aspirin 81 mg EC Tablet PO (08:24)
[2022-06-03] MEDS: pantoprazole DR 40 mg Tablet PO (08:24)
--- NOTE | 2022-06-03 08:37 | PC.NURSE ---
unable to complete assessment due to patient having dementia. Pt does talk clear but cannot understand commands given
--- NOTE | 2022-06-03 08:43 | PC.NURSE ---
Pt sitting in bed eating breakfast and watching tv. Pt is alert and oriented to person and birthday. Pt does not appear to be in any apparent distress and has no complaints of pain.
--- NOTE | 2022-06-03 11:47 | PC.NURSE ---
completed what was able to be completed, assessment could not be finished due to pt not following commands and understanding what is being asked of him, complicated by Alzheimer and hard of hearing.
[2022-06-03 11:59] LABS: Glucose Point of Care 116 mg/dL (70-110)
--- NOTE | 2022-06-03 16:10 | PM.PN ---
Subjective Subjective: He reports he is doing well today. Denies any additional symptoms. He is finishing up his breakfast. Not oriented. Hard of hearing, but otherwise conversant and pleasant. Vitals/I&O/Wt Last Vital Signs Temp 98.2 F 06/03/22 16:00 Pulse 65 06/03/22 16:00 Resp 18 06/03/22 16:00 BP 160/70 06/03/22 16:00 Pulse Ox 96 06/03/22 16:00 O2 Del Method 06/02/22 12:00 06/03/22 06/03/22 06/03/22 06:59 14:59 22:59 Intake Total 930 / 2145 Balance 930 / 2145 Weight last 48 hrs Weight 77.111 kg Physical Exam Const: COMMON NORMALS: alert; negative for patient oriented x3 GENERAL APPEARANCE: cooperative ORIENTATION/CONSCIOUSNESS: Yes awake OTHER: Very [place] HENMT: COMMON NORMALS: oropharynx normal Neck/C-Spine: COMMON NORMALS: no JVD Resp: COMMON NORMALS: normal respiratory effort and clear to auscultation bilaterally AUSCULTATION: clear to auscultation bilaterally Cardio: COMMON NORMALS: no JVD, regular rhythm, S1 normal heart sound present, S2 normal heart sound present and No murmurs present (Cardio) RHYTHM: regular rhythm HEART SOUNDS: S1 normal heart sound present and S2 normal heart sound present GI: COMMON NORMALS: Normal to inspection, nondistended, normoactive bowel sounds present, Soft to palpation and non-tender PALPATION: Yes Soft to palpation Extremity: COMMON NORMALS: no joint enlargement and no pedal edema Neuro: COMMON NORMALS: moves all extremities; negative for patient oriented x3 SENSORIUM/ORIENTATION: Yes alert OTHER: Very hard of hearing, having slightly easier time with exam today. Reports sensation is symmetrical. Does not appear to extinguish. Minimal right upper drift. Skin: COMMON NORMALS: no rashes or lesions noted GENERAL SKIN EXAM: no rashes or lesions noted Data : 06/02/22 05:12 06/03/22 03:35 A&P Assessment and plan (1) CVA (cerebral vascular accident): Continue aspirin, statin. Continue functional assessment with therapy. If he is not a candidate for anticoagulation, perhaps referral for left atrial appendage device closure may be considered, although I am not sure that this would be feasible with his underlying dementia and poor functional status. Additionally appears would benefit from SNF rehabilitation. Continue therapy assessments and discharge planning. Concern for additional possible acute on chronic CVA. Multiple prior CVA noted. With atrial fibrillation and fortunately at risk of recurrent CVA, however, due to recurrent falls, dementia, and very high risk of falling, bleeding. Not started on anticoagulation as per discussion with his family as appreciated in admission documentation. TTE with limited views. Noted possibly mild to moderate moderate aortic stenosis. Unknown ejection fraction. RV normal size, LA mildly increased in size. Continue aspirin, statin. Would discontinue meloxicam. Status: Acute (2) Atrial fibrillation, new onset: So far without tachycardia. TTE with limited views. Noted possibly mild to moderate moderate aortic stenosis. Unknown ejection fraction. RV normal size, LA mildly increased in size. Found not a candidate for anticoagulation. Carvedilol held due to concern for possible acute CVA. Also heart rate noted down to 50 bpm. Monitor. TSH WNL.Magnesium okay. Hypokalemia replaced. Recheck. Status: Acute (3) Falls: Assessment as above. Fall precautions. Not a candidate for anticoagulation. Status: Acute (4) Generalized weakness: Status: Acute (5) CAD (coronary artery disease): Status: Acute (6) Dementia: Status: Acute (7) Microscopic hematuria: Consider reassessment UA after discharge depending on goals of care. Status: Acute Plan Hypertension, held Coreg History of type 2 diabetes mellitus, A1c, low-dose sliding scale Alzheimer's dementia, worsening DNR/DNI Lovenox for DVT prophylaxis, SCDs Attestations Medical Necessity Statement*: Continue admission for assessment management following acute CVA, reassessment with therapy and discharge planning. Coding Level of Care Code Acute Generation Manager for Scott Levy Diagnoses CVA (cerebral vascular accident) I63.9 Atrial fibrillation, new onset I48.91 Falls W19.XXXA Generalized weakness R53.1 CAD (coronary artery disease) I25.10 Dementia F03.90 Microscopic hematuria R31.29
[2022-06-03 16:34] LABS: Glucose Point of Care 117 mg/dL (70-110)
--- NOTE | 2022-06-03 18:53 | PC.NURSE ---
Report given to Fidelia Ahumada RN at this time
[2022-06-03] MEDS: atorvastatin 40 mg Tablet PO (19:26)
[2022-06-03 20:39] LABS: Glucose Point of Care 117 mg/dL (70-110)
[2022-06-04] VITALS (8 sets, daily range): BP systolic 110–206; BP diastolic 63–119; PULSE 56–184; RESP 14–20; TEMP 36.3–36.8; O2SAT 93–97
--- NOTE | 2022-06-04 03:33 | PC.NURSE ---
Patient's heart rate down to 40s intermittently. A-fib on monitor. Patient asymptomatic. Will monitor.
[2022-06-04 04:48] LABS: Anion Gap 12.8 (5-19); Blood Urea Nitrogen 27 mg/dL (8-23); Carbon Dioxide 27 mmol/L (22-29); Chloride 103 mmol/L (98-107); Glucose 100 mg/dL (65-115); Osmolality Calculated 293 mOsm/kg (285-295); Potassium 3.8 mmol/L (3.5-5.1); Sodium 139 mmol/L (136-145)
[2022-06-04 06:32] LABS: Glucose Point of Care 88 mg/dL (70-110)
[2022-06-04] MEDS: tamsulosin 0.4 mg Capsule PO (08:23)
[2022-06-04] MEDS: pantoprazole DR 40 mg Tablet PO (08:23)
[2022-06-04] MEDS: aspirin 81 mg EC Tablet PO (08:23)
--- NOTE | 2022-06-04 08:28 | PC.NURSE ---
Patient can not comprehend instructions enough to complete assessment
[2022-06-04 11:49] LABS: Glucose Point of Care 159 mg/dL (70-110)
--- NOTE | 2022-06-04 13:42 | PM.PN ---
Subjective Subjective: This morning patient is not endorsing any new complaints is at the bedside who is stating that he is getting better She is wanting to talk to the director of casework department, I have updated her Vitals/I&O/Wt Last Vital Signs Temp 98.2 F 06/04/22 11:30 Pulse 64 06/04/22 11:30 Resp 17 06/04/22 11:30 BP 162/82 06/04/22 11:30 Pulse Ox 97 06/04/22 11:30 O2 Del Method 06/04/22 11:30 06/03/22 06/04/22 06/04/22 22:59 06:59 14:59 Intake Total 600 / 600 Balance 600 / 600 Physical Exam Narrative: Patient laying in his recliner Currently on room air Able to communicate and answer my questions As per the his right-sided weakness is old Abdomen is soft S1, S2 variable with systolic murmur Currently doing well on room air No edema of legs noted Data : 06/02/22 05:12 06/04/22 04:20 A&P Assessment and plan (1) Microscopic hematuria: Status: Acute (2) CVA (cerebral vascular accident): Status: Acute (3) Atrial fibrillation, new onset: Status: Acute (4) Falls: Status: Acute (5) Generalized weakness: Status: Acute (6) Nephrolithiasis: Status: Acute (7) Dementia: Status: Acute Plan Generalized weakness Right-sided residual weakness from previous stroke Nephrolithiasis Microscopic hematuria resolved No active signs of infection BPH Currently awaiting placement is requested to talk to director of casework department today I will updated Ivory Patient is DNR/DNI A. fib without RVR Not a candidate of anticoagulation Mild aortic stenosis Attestations Medical Necessity Statement*: Awaiting placement Time Spent in Patient Care: 30 Coding Level of Care Code Acute Product Safety Expert for Chg Fwd Diagnoses Microscopic hematuria R31.29 CVA (cerebral vascular accident) I63.9 Atrial fibrillation, new onset I48.91 Falls W19.XXXA Generalized weakness R53.1 Nephrolithiasis N20.0 Dementia F03.90
--- NOTE | 2022-06-04 15:17 | PC.SOCIAL ---
IMM Update pg 2 of [facility] updated and reviewed, signed and dated by patients . Copy provided and Copy in chart dated and initialed.
[2022-06-04 16:32] LABS: Glucose Point of Care 115 mg/dL (70-110)
--- NOTE | 2022-06-04 19:02 | PC.NURSE ---
Report given to marvin vegas RN at this time
[2022-06-04] MEDS: atorvastatin 40 mg Tablet PO (20:51)
[2022-06-04] MEDS: enoxaparin 40 mg/0.4 mL Syringe SUBCUT (20:52)
[2022-06-04 20:58] LABS: Glucose Point of Care 106 mg/dL (70-110)
[2022-06-05] VITALS: BP 150/84; PULSE 85; RESP 20; TEMP 36.3; O2SAT 96
[2022-06-05 04:00] VITALS: BP 167/97; PULSE 68; RESP 24; TEMP 36.6; O2SAT 97
[2022-06-05 05:14] LABS: SARS Covid-2 Antigen Negative (Negative)
[2022-06-05 06:00] VITALS: PULSE 87
[2022-06-05 06:22] LABS: Glucose Point of Care 81 mg/dL (70-110)
[2022-06-05 06:30] LABS: Anion Gap 13.2 (5-19); Blood Urea Nitrogen 21 mg/dL (8-23); Calcium 9.5 mg/dL (8.5-10.5); Carbon Dioxide 28 mmol/L (22-29); Chloride 103 mmol/L (98-107); Glucose 87 mg/dL (65-115); Osmolality Calculated 292 mOsm/kg (285-295); Potassium 4.2 mmol/L (3.5-5.1); Sodium 140 mmol/L (136-145)
[2022-06-05 07:20] VITALS: BP 185/91; PULSE 87; RESP 18; TEMP 36.8; O2SAT 94
[2022-06-05] MEDS: aspirin 81 mg EC Tablet PO (10:19)
[2022-06-05] MEDS: pantoprazole DR 40 mg Tablet PO (10:19)
[2022-06-05] MEDS: tamsulosin 0.4 mg Capsule PO (10:19)
[2022-06-05] MEDS: metoprolol tartrate 25 mg Tablet PO (10:20)
[2022-06-05] MEDS: lisinopril 10 mg Tablet PO (10:20)
[2022-06-05 11:05] VITALS: BP 159/72; PULSE 85; RESP 18; TEMP 36.7; O2SAT 95
[2022-06-05 11:29] LABS: Glucose Point of Care 126 mg/dL (70-110)
--- NOTE | 2022-06-05 12:08 | PM.DCS ---
Discharge Providers Date of Admission: 06/01/22 21:21 Date of Discharge: June 05, 2022 Attending Provider at Admission: Willie Corey MD Attending Provider at Discharge: Jose A Camacho MD Primary Care Provider: Teja Duggan Diagnoses at Discharge Discharge Diagnosis (1) Microscopic hematuria: Status: Acute (2) CVA (cerebral vascular accident): Status: Acute (3) Atrial fibrillation, new onset: Status: Acute (4) Falls: Status: Acute (5) Generalized weakness: Status: Acute (6) Nephrolithiasis: Status: Acute (7) Dementia: Status: Acute Reason for Visit Reason for Visit: WEAKNESS Hospital Course Hospital Course 81-year male with history of dementia, was admitted for worsening of weakness of his extremities, suspicion for CVA, was not a candidate with the coagulation as was diagnosed with new onset A. fib, he is very unsteady, his agreed for short-term rehab. He has history of nephrolithiasis however no signs of UTI or obstructive uropathy. Diverticulosis without diverticulitis. He remained hemodynamically stable. On telemetry nonsustained V. tach runs were noted he has been showing isolated PVCs, I have added metoprolol and discontinued Bystolic. Physical Exam Narrative: Patient laying in his recliner Currently on room air Able to communicate and answer my questions As per the his right-sided weakness is old Abdomen is soft S1, S2 variable with systolic murmur Currently doing well on room air No edema of legs noted Discharge Data Studies Completed and Pending Completed Studies During Hospitalization Category Date Time Status CT cervical spin wo con* [id number] Stat Cat Scan 06/01/22 18:[address] [place] [id number] Stat Cat Scan 06/01/22 18:[address] head wo con* [id number] Stat Cat Scan 06/01/22 18:25 Completed CV. echo complete* [id number] Routine Ultrasound 06/01/22 23:18 Completed Radiology Impressions Cervical Spine CT 06/01/22 18:25 IMPRESSION: No acute findings. Chest/Abdomen/Pelvis CT 06/01/22 18:25 IMPRESSION: 1. Negative for traumatic injury to the chest. 2. Cardiomegaly. 3. Coronary artery atherosclerotic calcifications. 4. Bilateral dependent atelectasis. IMPRESSION: 1. Negative for traumatic injury to the abdomen or pelvis. 2. 8.9 mm calculus in the right renal pelvis with some prominence of the renal pelvis. 3. Bilateral nonobstructing renal calyceal stones. 4. Prostate gland enlarged. 5. Severe bilateral osteoarthritis of the hips. 6. Diverticulosis without diverticulitis. 7. Left kidney 8.5 mm hyperdense likely hemorrhagic cyst, likely chronic. Head CT 06/01/22 18:25 IMPRESSION: No acute intracranial abnormality. Laboratory Results WBC 7.8 10^3/uL (4.0-10.0) 06/02/22 05:12 RBC 4.79 10^6/uL (4.1-5.3) 06/02/22 05:12 Hgb 14.7 g/dL (11.7-16.6) 06/02/22 05:12 Hct 44.8 % (42.0-52.0) 06/02/22 05:12 MCV 93.5 fl (80-94) 06/02/22 05:12 MCH 30.7 pg (28.0-34.0) 06/02/22 05:12 MCHC 32.8 g/dL (30.0-36.0) 06/02/22 05:12 RDW 14.7 % (12.1-15.1) 06/02/22 05:12 Plt Count 175 10^3/cmm (130-400) 06/02/22 05:12 MPV 11.0 fL (7.4-10.4) H 06/02/22 05:12 Neut % (Auto) 64.8 % 06/02/22 05:12 Lymph % (Auto) 22.3 % 06/02/22 05:12 [place] % (Auto) 8.4 % 06/02/22 05:12 Eos % (Auto) 3.6 % 06/02/22 05:12 Baso % (Auto) 0.6 % 06/02/22 05:12 Neut # (Auto) 5.07 10^3/uL (1.8-7.7) 06/02/22 05:12 Lymph # (Auto) 1.8 10^3/uL (0.8-4.8) 06/02/22 05:12 [place] # (Auto) 0.7 10^3/uL (0.2-0.9) 06/02/22 05:12 Eos # (Auto) 0.3 10^3/uL (0.0-0.8) 06/02/22 05:12 Baso # (Auto) 0.1 10^3/uL (0.0-0.1) 06/02/22 05:12 Nucleated RBC % (auto) 0 % 06/02/22 05:12 Nucleated RBCs # 0.0 /100WBC 06/02/22 05:12 Sodium 140 mmol/L (136-145) 06/05/22 05:28 Potassium 4.2 mmol/L (3.5-5.1) 06/05/22 05:28 Chloride 103 mmol/L (98-107) 06/05/22 05:28 Carbon Dioxide 28 mmol/L (22-29) 06/05/22 05:28 Anion Gap 13.2 (5-19) 06/05/22 05:28 BUN 21 mg/dL (8-23) 06/05/22 05:28 Creatinine 0.8 mg/dL (0.7-1.2) 06/05/22 05:28 GFR Calculation Not Reportable 06/05/22 05:28 Glucose 87 mg/dL (65-115) 06/05/22 05:28 POC Glucose 126 mg/dL (70-110) H 06/05/22 11:25 Estimat Average Glucose 103 06/01/22 23:58 Hemoglobin A1c 5.2 % (4.0-6.0) 06/01/22 23:58 Calculated Osmolality 292 mOsm/kg (285-295) 06/05/22 05:28 Calcium 9.5 mg/dL (8.5-10.5) 06/05/22 05:28 Phosphorus 3.0 mg/dL (2.5-4.5) 06/02/22 05:12 Magnesium 2.0 mg/dL (1.7-2.3) 06/02/22 05:12 Total Bilirubin 1.0 mg/dL (0.15-1.2) 06/01/22 19:02 AST 17 U/L (0-40) 06/01/22 19:02 ALT 15 U/L (0-41) 06/01/22 19:02 Alkaline Phosphatase 87 U/L (40-130) 06/01/22 19:02 Creatine Kinase 107 U/L (39-308) 06/01/22 19:02 Troponin T Baseline 39 ng/L (0-15) H 06/01/22 19:02 Troponin T 120 Minute 40.77 ng/L (0-15) H 06/01/22 20:40 Delta Troponin T 1.77 ABS# (0-10) 06/01/22 20:40 Troponin T Hi Sens 6Hr 45.21 ng/L (0-15) H 06/01/22 23:58 Troponin T Hi Sens 6Hr Delta 6.21 ng/L (0-12) 06/01/22 23:58 Total Protein 6.3 g/dL (6.6-8.7) L 06/01/22 19:02 Albumin 3.4 g/dL (3.5-5.2) L 06/01/22 19:02 Globulin 2.9 g/dL (1.3-4.6) 06/01/22 19:02 Triglycerides 78 mg/dL (0-150) 06/01/22 23:58 Cholesterol 122 mg/dL (0-200) 06/01/22 23:58 LDL Cholesterol, Calc 69 mg/dL (50-129) 06/01/22 23:58 HDL Cholesterol 37 mg/dL (60-100) L 06/01/22 23:58 LDL/HDL Ratio 1.86 RATIO (0.00-3.22) 06/01/22 23:58 Cholesterol/HDL Ratio 3.30 mg/dL (1.0-5.00) 06/01/22 23:58 TSH 1.71 uIU/mL (0.27-4.20) 06/01/22 23:58 Urine Color Yellow (Yellow) 06/01/22 19:54 Urine Appearance Clear (CLEAR) 06/01/22 19:54 Urine pH 6 (5-7) 06/01/22 19:54 Ur Specific [place] 1.020 (1.005-1.030) 06/01/22 19:54 Urine Protein 1+ (Negative) H 06/01/22 19:54 Urine Glucose (UA) Norm (Normal) 06/01/22 19:54 Urine Ketones 1+ (Negative) H 06/01/22 19:54 Urine Blood 3+ (Negative) H 06/01/22 19:54 Urine Nitrate Negative (Negative) 06/01/22 19:54 Urine Bilirubin Neg (Negative) 06/01/22 19:54 Urine Urobilinogen 1 mg/dL (Negative) H 06/01/22 19:54 Ur Leukocyte Esterase Negative (Negative) 06/01/22 19:54 Urine RBC 10-15 /hpf (0-2) H 06/01/22 19:54 Urine WBC 0-4 /hpf (0-5) H 06/01/22 19:54 Ur Squamous Epith Cells 0-4 /hpf (0-5) H 06/01/22 19:54 Amorphous Sediment Not Reportable 06/01/22 19:54 Urine Bacteria None /hpf (NONE) 06/01/22 19:54 Hyaline Casts 0-4 /lpf H 06/01/22 19:54 SARS-CoV-2 Ag (Rapid) Negative (Negative) 06/05/22 04:40 Vitals Last Vital Signs Temp 98.1 F 06/05/22 11:05 Pulse 85 06/05/22 11:05 Resp 18 06/05/22 11:05 BP 159/72 06/05/22 11:05 Pulse Ox 95 06/05/22 11:05 O2 Del Method 06/05/22 11:05 Discharge Plan Discharge Patient Disposition: Xfer SNF Condition: Stable Prescriptions: New metoprolol tartrate 25 mg tablet 25 mg PO Q12H Qty: 60 0RF magnesium 200 mg tablet 200 mg PO DAILY Qty: 10 0RF Continued allopurinol 300 mg tablet 300 mg PO DAILY finasteride 5 mg tablet 5 mg PO DAILY hydrochlorothiazide 25 mg tablet 25 mg PO DAILY Namzaric 28-10 mg capsule,sprinkle,ER 24hr 1 cap PO DAILY citalopram 10 mg tablet 10 mg PO DAILY tamsulosin 0.4 mg capsule 0.4 mg PO DAILY rosuvastatin 10 mg tablet 10 mg PO DAILY aspirin 325 mg Tablet 325 mg PO DAILY Myrbetriq 50 mg tablet extended release 24 hr 50 mg PO DAILY Changed lisinopril 10 mg tablet 10 mg PO BID Qty: 60 0RF Discontinued nebivolol [Bystolic] 5 mg Tablet 5 mg PO DAILY meloxicam 15 mg tablet 15 mg PO DAILY Discharge Orders: Discharge Order (Routine); Ordered 06/05/22 Ordered By: Jose A Camacho Referrals: [facility] [Outside] Teja Duggan MD [Primary Care Provider] - Adam Flores MD [Physician] - Patient Instructions: Stroke (GEN), Stroke Stoplight Discharge Attestations Time Spent in Discharge Care*: less than 30 min Quality Metrics Clinical Quality Measures [ No reported AMI, CVA or VTE this stay] Coding Level of Care Code Acute Chg FW DC note Diagnoses Microscopic hematuria R31.29 CVA (cerebral vascular accident) I63.9 Atrial fibrillation, new onset I48.91 Falls W19.XXXA Generalized weakness R53.1 Nephrolithiasis N20.0 Dementia F03.90
--- NOTE | 2022-06-05 13:52 | PC.NURSE ---
Report called to [facility] at this time.
[2022-06-05 15:11] VITALS: BP 159/72; PULSE 85; RESP 18; TEMP 36.7; O2SAT 95
== END 2022-06-05 02:15 | disposition skilled nursing facility (03) | DRG 65 ==
LOC: ER 21:21 → MEDSURG 06-02 07:52
PROVIDERS: Internal Medicine; Admitting Provider Family Medicine; Emergency Provider Emergency Medicine; PCP Internal Medicine; Visit Provider Internal Medicine
DX: I63.9 Cerebral infarction, unspecified (principal); I69.351 Hemiplegia and hemiparesis following cerebral infarction affecting right dominant side; R29.705 NIHSS score 5; R53.1 Weakness; I48.91 Unspecified atrial fibrillation; I25.10 Atherosclerotic heart disease of native coronary artery without angina pectoris; R29.6 Repeated falls; E87.6 Hypokalemia; I49.3 Ventricular premature depolarization; I35.0 Nonrheumatic aortic (valve) stenosis; I10 Essential (primary) hypertension; G30.9 Alzheimer's disease, unspecified; F02.80 Dementia in other diseases classified elsewhere, unspecified severity, without behavioral disturbance, psychotic disturbance, mood disturbance, and anxiety; N20.0 Calculus of kidney; R31.29 Other microscopic hematuria; K57.90 Diverticulosis of intestine, part unspecified, without perforation or abscess without bleeding; E78.5 Hyperlipidemia, unspecified; E11.9 Type 2 diabetes mellitus without complications; H91.90 Unspecified hearing loss, unspecified ear; Z95.5 Presence of coronary angioplasty implant and graft; Z66 Do not resuscitate
CPT/HCPCS: 36415; 36416; 70450; 71250; 72125; 74176; 80048; 80053; 80061; 81001; 82550; 82962; 83036; 83735; 84100; 84443; 84484; 85025; 87426; 92523; 92610; 93005; 93306; 94664; 96372; 97110; 97116; 97161; 97167; 97535; 99285; J1650; J7030